=== PATIENT | male | born 1960 | race Caucasian/White ===

== ENCOUNTER 2023-05-21 15:37 | Emergency (ER) | payer BC ==
[~2023-05-21] VITALS: Ht 185.4 cm; Wt 95.3 kg
[2023-05-21 15:37] VITALS: BP_SYST 135; PULSE 75; RESP 17; TEMP 98.2; O2SAT 99
--- NOTE | 2023-05-21 15:44 | NUR ---
MD DR BAIN AT BEDSIDE
[2023-05-21] MEDS ORDERED: NACL 0.9% 1,000 ML IV ONE (15:45)
[2023-05-21] MEDS ORDERED: FAMOTIDINE PF 20 MG/2 ML VIAL IVP ONE (15:45)
[2023-05-21] MEDS ORDERED: fentaNYL CITRATE/PF 100 MCG/2 ML AMP IVP ONE (15:45)
[2023-05-21] MEDS ORDERED: ONDANSETRON HCL 4 MG/2 ML VIAL IVP ONE (15:45)
[2023-05-21 16:32] LABS: BASOPHILS % (AUTO) 0.2 % (0.0-2.0); MEAN CORPUSCULAR HGB CONC 33 % (32-36); RED CELL DISTRIBUTION WIDTH 13.6 % (9.0-15.0)
[2023-05-21 16:37] LABS: EOSINOPHILS % (AUTO) 0.1 % (0.0-4.0); HEMATOCRIT 49.8 % (36-54); HEMOGLOBIN 16.6 g/dL (14.0-18.0); LYMPHOCYTES # (AUTO) 1.1 K/uL (1.0-5.5); LYMPHOCYTES % (AUTO) 7.3 % (20.5-51.5); MEAN CORPUSCULAR HEMOGLOBIN 32 pg (27-31); MEAN CORPUSCULAR VOLUME 94 fL (79.0-98.0); MONOCYTES # (AUTO) 0.6 K/uL (0.0-1.0); MONOCYTES % (AUTO) 3.8 % (1.7-9.3); NEUTROPHILS # (AUTO) 12.9 K/uL (1.8-7.7); NEUTROPHILS % (AUTO) 88.6 % (40.0-70.0); PLATELET COUNT (AUTO) 220 K/uL (130-430); RED BLOOD CELL COUNT(AUTO) 5.27 MIL/uL (4.2-6.2); WHITE BLOOD COUNT (AUTO) 14.6 K/uL (4.8-10.8)
[2023-05-21 16:41] LABS: ANION GAP 8 (5-15); CHLORIDE 101 mmol/L (98-107); GFR AFRICAN AMERICAN 111 mL/min (>90); GLUCOSE 118 mg/dL (74-106); UREA NITROGEN, BLOOD 17 mg/dL (8-21)
[2023-05-21 16:48] LABS: ALANINE AMINOTRANSFERASE 28 U/L (12-78); ALBUMIN 4.1 g/dL (3.4-4.8); ASPARTATE AMINOTRANSFERASE 22 U/L (10-37); LIPASE 76 U/L (73-393); TOTAL BILIRUBIN 1.3 mg/dL (0.0-1.0)
[2023-05-21 16:49] LABS: ALCOHOL, BLOOD < 3 mg/dL (<10)
--- NOTE | 2023-05-21 16:53 | NUR ---
PT BIBA FROM WORK W/ C/O NAUSEA AND ABDOMINAL PAIN, VITALS ARE STABLE, A/OX4
--- NOTE | 2023-05-21 16:56 | NUR ---
PT GIVEN ZOFRAN AND PEPCID, CURRENTLY REFUSING PAIN MEDICATION
--- NOTE | 2023-05-21 17:30 | NUR ---
Dr Hensley evaluating patient at bedside
[2023-05-21 17:35] LABS: BILIRUBIN,URINE NEGATIVE (NEGATIVE); CLARITY/URINE CLEAR (CLEAR); COLOR,URINE YELLOW (YELLOW); GLUCOSE,URINE NEGATIVE (NEGATIVE); KETONES,URINE TRACE (NEGATIVE); LEUKOCYTE ESTERASE ,URINE NEGATIVE (NEGATIVE); NITRITE, URINE NEGATIVE (NEGATIVE); PROTEIN URINE TRACE (NEGATIVE); UROBILINOGEN,URINE 0.2 (0.2-1.0)
[2023-05-21 17:42] LABS: BLOOD, URINE TRACE (NEGATIVE)
[2023-05-21 17:45] LABS: BACTERIA,URINE RARE /HPF (None Seen); MUCUS,URINE None Seen /LPF (None Seen); RBC,URINE 0-3 /HPF (0-3); WBC,URINE 0-3 /HPF (0-3)
[2023-05-21 19:10] LABS: BARBITURATE, URINE NEGATIVE (NEG <=200); BENZODIAZEPINE, URINE NEGATIVE (NEG <=150); CANNABINOID, URINE NEGATIVE (NEG <=50); COCAINE, URINE NEGATIVE (NEG <=150); METHAMPHETAMINES SCREEN,URINE NEGATIVE (NEG <=500); OPIATE, URINE NEGATIVE (NEG <=100); PHENCYCLIDINE SCREEN,URINE NEGATIVE (NEG <=25); UR TRICYCLIC ANTIDEPRESSANTS NEGATIVE (NEG <=300); URINE AMPHETAMINE NEGATIVE (NEG <=500); URINE METHADONE NEGATIVE (NEG <=200); URINE OXYCODONE SCREEN NEGATIVE (NEG <=100); URINE PROPOXYPHENE SCREEN NEGATIVE (NEG <=300)
--- NOTE | 2023-05-21 19:22 | NUR ---
PT STATES HE FEELS BETTER, NO NEED FOR PAIN MEDICATION. VITAL ARE STABLE AND PT CONDITION IS IMPROVED. NO N/V.
--- NOTE | 2023-05-21 19:30 | NUR ---
REPORT RECIEVED FROM [facility]. PT VSS RESTING IN BED AT THIS TIME
--- NOTE | 2023-05-21 22:00 | NUR ---
PT STATES READY TO LEAVE. INFORMED PT DR BYNUM WAITING ON CT OF ABD RESULTS BEFORE DISCHARGE
[2023-05-21 23:35] VITALS: BP_SYST 133; PULSE 92; RESP 16; TEMP 98.2; O2SAT 97
--- NOTE | 2023-05-21 23:35 | NUR ---
PT ELOPED NO DISCHARGE OR AMA FORM SIGNED
--- NOTE | 2023-05-21 23:35 | NUR ---
PT STATES HE WANTS TO LEAVE. [place] REMOVED IV. PT LEFT WITHOUT SIGNING ANY AMA OR DISCHARGE PAPERWORK
== END 2023-05-21 23:35 | disposition left against medical advice (07) ==
LOC: SED 15:37
DX: K59.00 Constipation, unspecified (principal); R10.9 Unspecified abdominal pain; R11.0 Nausea; Z79.899 Other long term (current) drug therapy
CPT/HCPCS: 99285; 74176; 96374; 71045; 96361; 96375; 80307; 80053; 83690; 85025; 84484; 36415; 76376; 81000; J3490; J2405; J7030; G0482